=== PATIENT | female | born 1935 | race Two or more races ===

== ENCOUNTER 2016-11-12 16:56 | Inpatient (IN) | payer MEDICARE, MEDICAID ==
[~2016-11-12] VITALS: Ht 167.6 cm; Wt 110.7 kg
[2016-11-12] MEDS ORDERED: FEE PK DOSING 1 MIN EA MC ONE (16:58)
--- NOTE | 2016-11-12 17:00 | NUR ---
Pt bibra 39 from home c/o sob and a sharp pain to right lower breast when coughing, spo2=89% on RA. Placed on monitor. Awaiting md order
--- NOTE | 2016-11-12 17:15 | NUR ---
ALUM PLANT OPERATOR AT BEDSIDE
[2016-11-12 17:26] LABS: EOSINOPHILS # (AUTO) 0.1 /CMM (0.0-0.7); HEMOGLOBIN 15.9 g/dL (11.5-14.8)
--- NOTE | 2016-11-12 17:26 | NUR ---
EKG IN PROGRESS
--- NOTE | 2016-11-12 17:27 | NUR ---
RT AT BEDSIDE ABG
[2016-11-12 17:32] LABS: ABG BASE EXCESS 3.5 mmol/L; ABG OXYGEN SATURATION 88.3 % (92.0-98.5); ABG PCO2 38.6 mmHg (35.0-45.0); ABG PH 7.467 (7.350-7.450); ABG PO2 51.7 mmHg (75.0-100.0); AaDO2 102.4 mmHg; COHb 1.7 % (0.5-1.5); MetHb 0.5 % (0.0-1.5); O2Hb 86.4 % (94.0-97.0); SITE, ABG Left Radial; VENT MODE, BG 2L NC
[2016-11-12 17:33] LABS: INR 1.27 (0.87-1.13); PROTHROMBIN TIME 13.4 SECS (9.5-12.7)
[2016-11-12 17:34] LABS: BASOPHILS # (AUTO) 0.5 /CMM (0.0-0.2); BASOPHILS % (AUTO) 2.4 % (0.0-2.0); EOSINOPHILS % (AUTO) 0.5 % (0.0-6.0); HEMATOCRIT 49 % (33-45); LYMPHOCYTES % (AUTO) 5.2 % (20.0-44.0); MEAN CORPUSCULAR HEMOGLOBIN 31 PG (26.0-33.0); MEAN CORPUSCULAR HGB CONC 33 g/dl (31.0-36.0); MEAN CORPUSCULAR VOLUME 94 fL (82-100); MONOCYTES # (AUTO) 1.1 /CMM (0.1-1.30); MONOCYTES % (AUTO) 5.6 % (2.0-12.0); NEUTROPHILS # (AUTO) 17.4 /CMM (1.8-8.9); NEUTROPHILS % (AUTO) 86.3 % (43.0-81.0); PLATELET COUNT (AUTO) 335 /CMM (150-450); RDW COEFFICIENT OF VARIATION 13.7 (11.5-15.0); RED BLOOD CELL COUNT(AUTO) 5.17 MIL/uL (4.0-5.2); WHITE BLOOD COUNT (AUTO) 20.1 K/uL (4.3-11.0)
[2016-11-12 17:39] LABS: TROPONIN I 0.071 ng/mL (0.00-0.056)
[2016-11-12 17:52] LABS: APPEARANCE,URINE Slightly Cloudy (CLEAR); BILIRUBIN,URINE SMALL (NEGATIVE); BLOOD, URINE Trace-intact Ery/uL (NEGATIVE); COLOR,URINE Orange (YELLOW); KETONES,URINE Trace (NEGATIVE); LEUKOCYTE ESTERASE ,URINE Negative (NEGATIVE); NITRITE, URINE Negative (NEGATIVE); PROTEIN,URINE 100 mg/dl (NEGATIVE); UGLUCOSE Negative (NEGATIVE); UROBILINOGEN,URINE >=8.0 EU/dL (0.2)
[2016-11-12] MEDS ORDERED: CEFEPIME 1 GM in IV D5W 50 ML IV ONE (18:00)
[2016-11-12] MEDS ORDERED: VANCOMYCIN 1 GM in IV D5W 250 ML IV ONE (18:00)
[2016-11-12 18:05] LABS: ALANINE AMINOTRANSFERASE 34 U/L (12-78); ALBUMIN 2.8 g/dL (3.4-5.0); ALKALINE PHOSPHATASE 144 U/L (46-116); ASPARTATE AMINOTRANSFERASE 38 U/L (15-37); BILIRUBIN,DIRECT 0.5 mg/dL (0.0-0.2); BILIRUBIN,TOTAL 1.3 mg/dL (0.2-1.0); CALCIUM, SERUM 8.8 mg/dL (8.5-10.1); CREATININE 0.9 mg/dL (0.6-1.3); GLUCOSE 155 mg/dL (74-106); TOTAL PROTEIN, SERUM 7.7 g/dL (6.4-8.2); UREA NITROGEN, BLOOD 14 mg/dL (7-18)
[2016-11-12 18:06] LABS: BAND % (MANUAL) 1 % (0.0-5.0); EOSINOPHILS % (MANUAL) 1 % (0-4); LYMPHOCYTES % (MANUAL) 10 % (16-48); MONOCYTES % (MANUAL) 7 % (0-11.0); NEUTROPHILS % (MANUAL) 81 (42-76)
--- NOTE | 2016-11-12 18:07 | NUR ---
CALLED PHARMACY FOR MEDS
[2016-11-12 18:10] LABS: CARBON DIOXIDE 29 mmol/L (21-32); CHLORIDE 101 mmol/L (98-107); POTASSIUM 3.6 mmol/L (3.5-5.1); SODIUM SERUM 138 mmol/L (136-145)
[2016-11-12] MEDS ORDERED: DOXY25TA36 PO (18:10)
[2016-11-12] MEDS ORDERED: CETI-102 PO (18:10)
[2016-11-12] MEDS ORDERED: OMEP20TA68 PO (18:10)
[2016-11-12] MEDS ORDERED: ATEN25TA PO (18:10)
[2016-11-12] MEDS ORDERED: PRAV40TA3 PO (18:10)
[2016-11-12] MEDS ORDERED: FLUO-120 PO (18:10)
[2016-11-12] MEDS ORDERED: MEMA10TA PO (18:10)
[2016-11-12] MEDS ORDERED: METO25TA6 PO (18:10)
[2016-11-12] MEDS ORDERED: TOLT4CAP PO (18:10)
[2016-11-12] MEDS ORDERED: DONE10TA44 PO (18:10)
[2016-11-12] MEDS ORDERED: IV SET PRIMARY 1 EA INFUS.SET MC ONE ×2 (18:11→19:02)
[2016-11-12] MEDS ORDERED: DICL2.5D LEFTEYE (18:17)
[2016-11-12] MEDS ORDERED: TOBR5DRO2 LEFTEYE (18:17)
[2016-11-12] MEDS ORDERED: IV SET PRIMARY PUMP SET 1 EA INFUS.SET MC ONE (18:22)
[2016-11-12] MEDS ORDERED: IPRATROPIUM NEB FS 0.5 MG/2.5 ML AMPUL.NEB NEB PRN (18:30)
[2016-11-12] MEDS ORDERED: MAG HYDROX/AL HYDROX/SIMETH 30 ML UDC PO PRN (18:30)
[2016-11-12] MEDS ORDERED: ACETAMINOPHEN 325 MG TABLET PO PRN (18:30)
[2016-11-12] MEDS ORDERED: Z GUARD REMEDY 2 OZ OINT TP PRN (18:30)
[2016-11-12] MEDS ORDERED: ZOLPIDEM TARTRATE 5 MG TABLET PO PRN (18:30)
[2016-11-12] MEDS ORDERED: ASPIRIN 325 MG TABLET PO ONE (18:30)
[2016-11-12] MEDS ORDERED: MAGNESIUM HYDROXIDE 30 ML UDC PO PRN (18:30)
[2016-11-12] MEDS ORDERED: VANCOMYCIN 1 GM in IV D5W 250 ML IV SCH (18:30)
[2016-11-12] MEDS ORDERED: ONDANSETRON HCL/PF 4 MG/2 ML VIAL IVP PRN (18:30)
[2016-11-12 18:35] LABS: BACTERIA,URINE None seen /HPF (None Seen); SQUAMOUS EPITHELIAL CELL,UR Few /HPF (None Seen); URINE AMORPHOUS URATE Moderate /HPF (None Seen); WBC,URINE 0-2 /HPF (0-3)
[2016-11-12 18:36] LABS: MUCUS,URINE Moderate /LPF (None Seen)
[2016-11-12] MEDS ORDERED: IV NS 0.9% 1,000 ML BAG IV ONE (19:00)
[2016-11-12] MEDS ORDERED: IV NS 0.9% 500 ML IV ONE (19:02)
[2016-11-12] MEDS ORDERED: IV NS 0.9% 3,000 ML ONE (19:02)
--- NOTE | 2016-11-12 19:39 | NUR ---
PT LEFT FOR TELE FLOOR VIA [facility] WITH CATHLEEN SALCIDO. REPORT TO BE GIVEN AT BEDSIDE.
[2016-11-12 19:49] VITALS: BP 140/62
--- NOTE | 2016-11-12 19:49 | NUR ---
COMMERCIAL LOAN ANALYST OPENING NOTES: RECEIVED PT FROM ED WITH 2 FAMILY MEMBERS AT BEDSIDE. PT IS A/O X1-2. PT WAS ON NC 4LPM VIA NC AND IS BEING INFUSED WITH BOLUS OF 2L NS BAG. PT HAS IV ON R HAND #20G. WAS ENDORSED TO CONTINUE 1L AND 500ML BAG TOTALING TO 3.5L OF BAG OF NS. WILL CONTINUE TO MONITOR PT.
[2016-11-12] MEDS: ENOXAPARIN SODIUM 40 MG/0.4 ML DISP.SYRIN SQ SCH (20:51)
[2016-11-12] MEDS ORDERED: PIPERACILLIN /TAZOBACTAM 4.5 G in IV D5W 50 ML IV SCH (21:00)
[2016-11-12] MEDS: DONEPEZIL 5 MG TABLET PO SCH (21:54)
[2016-11-12] MEDS: ATORVASTATIN 10 MG TABLET PO SCH (21:54)
[2016-11-12] MEDS ORDERED: PRAVASTATIN SODIUM 20 MG TABLET PO SCH (22:00)
[2016-11-12 23:00] VITALS: BP 127/59
--- NOTE | 2016-11-12 23:00 | NUR ---
IRONER SOCK NOTES: WAS NOTIFIED FROM TECH THAT PT IS HAVING A FIB FROM 170S-200s. PAGED DR. BEYER OF SITUATION AND WAS ORDERED EKG STAT.
[2016-11-12] MEDS ORDERED: METOPROLOL TARTRATE INJ 5 MG/5 ML AMPUL ONE (23:05)
--- NOTE | 2016-11-12 23:10 | NUR ---
PLUG MAKING OPERATOR NOTES: GOT RESULTS OF EKG : A -FIB WITH RAPID V RATE [address] DR[address] BEYER AT BEDSIDE AND GAVE ORDER OF LOPRESSOR 5MG IV X 1. BP WAS 127/59 HR 136 . CHARGE NURSE AND MOLD CHANGER AWARE.
[2016-11-12 23:15] VITALS: BP 108/50
[2016-11-12] MEDS ORDERED: METOPROLOL TARTRATE INJ 5 MG/5 ML AMPUL IVP ONE (23:30)
--- NOTE | 2016-11-12 23:30 | NUR ---
ASSEMBLER SMALL PRODUCTS NOTES: CHARGE NURSE AWARE AND TRANSFER TO JASSI PER DR. BEYER WAS GIVEN. WILL CALL JASSI FOR REPORT.
[2016-11-12 23:40] VITALS: BP 106/67
[2016-11-13] VITALS (7 sets, daily range): BP systolic 105–144; BP diastolic 63–87
--- NOTE | 2016-11-13 | NUR ---
RESOURCING CONSULTANT NOTES: TRANSFER WITH ANOTHER RN ACCOMPANIED TO JASSI. GAVE REPORT AT BEDSIDE.
[2016-11-13] MEDS ORDERED: SECONDARY IV SET 1 EA INFUS.SET MC ONE ×3 (00:03→17:03)
[2016-11-13] MEDS ORDERED: IV SET PRIMARY PUMP SET 1 EA INFUS.SET MC ONE ×2 (00:03→00:35)
[2016-11-13] MEDS ORDERED: ASPIRIN 325 MG TABLET ONE (00:06)
--- NOTE | 2016-11-13 00:10 | NUR ---
TELE-TD/MIXER MACHINE FEEDER RECEIVED PT ACCOMPANIED BY 3W STAFF. PT IS A/Ox4 AND HAS NO COMPLAINTS OF ACUTE STRESS OR SOB, BUT COMPLAINT OF 7/10 BACK PAIN. PT CHANGED INTO HOSPITAL GOWN AND CLEANED. ORIENTED TO ROOM AND CALL LIGHT USE. PT BP IS STABLE AND AFEBRILE, BUT PT SHOWING RAPID AFIB WITH RVR HR RATE 150, WITH PERIODS OF SVT HR 160-190 AND PERIODS OF VTACH LASTING 4 SECONDS PER STRAP BUCKLER MACHINE. I SPOKE WITH DR. BEYER AND NEW ORDERS FOR AMIODARONE DRIP PER PROTOCOL. PT IS ASYMPTOMATIC. WILL CONTINUE TO MONITOR CLOSELY.
[2016-11-13] MEDS: IV NS 0.9% 1,000 ML IV PRN ×2 (00:12→18:40)
[2016-11-13] MEDS: PIPERACILLIN /TAZOBACTAM 3.375 G in IV D5W 50 ML IV SCH ×5 (00:12→17:00)
[2016-11-13] MEDS: HYDROCODONE/APAP 5/325MG 1 EACH TABLET PO PRN ×3 (00:14→17:44)
[2016-11-13] MEDS ORDERED: AMIODARONE 150 MG/3 ML VIAL IV ONE ×2 (00:34→00:37)
[2016-11-13] MEDS ORDERED: IV D5W 100 ML IV ONE ×2 (00:36→00:37)
[2016-11-13] MEDS ORDERED: IV D5W 500 ML IV ONE (00:39)
--- NOTE | 2016-11-13 00:48 | NUR ---
MED NOTE: ALL ONCE STK MEDS REMOVED FROM PT EMAR. FOR PT SAFETY.
[2016-11-13] MEDS ORDERED: AMIODARONE 150 MG in IV D5W 100 ML IV ONE (01:00)
[2016-11-13] MEDS ORDERED: AMIODARONE 900 MG in IV D5W 482 ML IV PRN (01:00)
--- NOTE | 2016-11-13 01:03 | NUR ---
TELE-TD DRAFTER MARINE PT CONVERTED TO NSR ON TELE. AMIODARONE DRIP RUNNING PER PROTOCOL. WILL CONTINUE TO MONITOR.
[2016-11-13] MEDS ORDERED: ALBUTEROL FS 2.5 MG/3 ML VIAL.NEB ONE (04:54)
[2016-11-13 06:48] LABS: EOSINOPHILS # (AUTO) 0.1 /CMM (0.0-0.7); EOSINOPHILS % (AUTO) 0.7 % (0.0-6.0); HEMATOCRIT 38 % (33-45); HEMOGLOBIN 12.8 g/dL (11.5-14.8); LYMPHOCYTES # (AUTO) 1.2 /CMM (0.8-4.8); MEAN CORPUSCULAR HEMOGLOBIN 33 PG (26.0-33.0); MEAN CORPUSCULAR HGB CONC 34 g/dl (31.0-36.0); MEAN CORPUSCULAR VOLUME 95 fL (82-100); MONOCYTES # (AUTO) 0.4 /CMM (0.1-1.30); MONOCYTES % (AUTO) 2.3 % (2.0-12.0); NEUTROPHILS # (AUTO) 17.7 /CMM (1.8-8.9); PLATELET COUNT (AUTO) 234 /CMM (150-450); RDW COEFFICIENT OF VARIATION 14.3 (11.5-15.0); RED BLOOD CELL COUNT(AUTO) 3.93 MIL/uL (4.0-5.2); WHITE BLOOD COUNT (AUTO) 19.4 K/uL (4.3-11.0)
[2016-11-13 07:02] LABS: B-TYPE NATRIURETIC PEPTIDE 1153 PG/ML (0-125); CALCIUM, SERUM 7.6 mg/dL (8.5-10.1); CARBON DIOXIDE 27 mmol/L (21-32); CHLORIDE 106 mmol/L (98-107); CREATININE 0.8 mg/dL (0.6-1.3); GLUCOSE 132 mg/dL (74-106); MAGNESIUM 1.7 mg/dL (1.8-2.4); PHOSPHORUS 2.9 mg/dL (2.5-4.9); POTASSIUM 3.6 mmol/L (3.5-5.1); SODIUM SERUM 142 mmol/L (136-145); UREA NITROGEN, BLOOD 10 mg/dL (7-18)
[2016-11-13 07:06] LABS: CHOLESTEROL 59 mg/dL (<200); HDL CHOLESTEROL 18 mg/dL (40-60); LDL 28 mg/dL (0-99); THYROID STIMULATING HORMONE 1.015 uIU/mL (0.358-3.74); TRIGLYCERIDES 66 mg/dL (30-150)
--- NOTE | 2016-11-13 07:45 | NUR ---
JASSI/RN - Notes Received pt in bed alert and oriented x3. No s/s of respiratory distress. Denies pain or discomfort at this time. On Tele reading SR/Afib 70's. Amiodorone drip infusing at this time. IVF infusing well. Barrera catheter intact draining urine to gravity. Safety and comfort measures in place. Will continue to monitor pt closely.
[2016-11-13] MEDS: MEMANTINE HCL 5 MG TABLET PO SCH ×2 (08:57→16:11)
[2016-11-13] MEDS: PANTOPRAZOLE 40 MG TABLET.DR PO SCH (08:57)
[2016-11-13] MEDS: FLUOXETINE HCL 20 MG CAPSULE PO SCH (08:57)
--- NOTE | 2016-11-13 09:45 | NUR ---
JASSI/RN - Notes Patient up with physical therapy at this time.
--- NOTE | 2016-11-13 10:00 | NUR ---
JASSI/RN - Notes Pt complains of abdominal pain on pain scale 8 out of 10. Administered [place] 5/325 1 tab as ordered for PRN pain. Comfort measures rendered. Will reassess pain accordingly.
[2016-11-13] MEDS ORDERED: Magnesium 1GM/D5W 100ML PREMIX 100 ML IV SCH (12:41)
[2016-11-13] MEDS ORDERED: POTASSIUM CHLORIDE 20 MEQ TAB.PRT.SR PO SCH (13:00)
[2016-11-13] MEDS: Magnesium 1GM/D5W 100ML PREMIX 100 ML IV SCH ×2 (13:21→14:22)
[2016-11-13] MEDS: GUAIFENESIN 300 MG/15 ML UDC PO PRN (15:42)
[2016-11-13] MEDS: AMIODARONE HCL 200 MG TABLET PO SCH (16:02)
[2016-11-13] MEDS: LACTOBACILLUS RHAMNOSUS GG 1 EACH CAP.SPRINK PO SCH (16:11)
--- NOTE | 2016-11-13 17:00 | NUR ---
JASSI/RN - Notes Amiodorone PO not given at this time, pt still on Amiodorone drip at this time.
[2016-11-13] MEDS: VANCOMYCIN 1.25 GM in IV D5W 500 ML IV SCH (17:34)
--- NOTE | 2016-11-13 17:44 | NUR ---
JASSI/RN - Notes Pt complains of abdominal pain on pain scale 7 out of 10. Administered [place] 5/325 1 tab as ordered for PRN pain. Comfort measures rendered. Will reassess pain accordingly.
[2016-11-13] MEDS ORDERED: ALBUTEROL FS 2.5 MG/3 ML VIAL.NEB NEB PRN (19:34)
--- NOTE | 2016-11-13 19:59 | NUR ---
CLIP BOLTER AND WRAPPER. INITIAL ASSESSMENT. RECEIVED THE PT REST ON THE BED. PT AWAKE, ALERT, FOLLOW COMMANDS. ESCALATOR MECHANIC SHOWING AFIB. OXYGEN 3L VIA NASAL CANNULA. SAT 98%. FC PATENT. URINE DRAINING. IV RT WRIST 20G. IVF NS 75 ML/H,AMIO 0.5MG/ HOB ELEVATED. TURN AND REPOSITION Q2H. WILL CONT INUE TO MONITOR VITALS.
--- NOTE | 2016-11-13 20:00 | NUR ---
CHANGE OF ASSIGNMENT NOTE; PT ON THE BED RESTING WITHOUT ANY DISTRESS, BREATHING UNLABORED ON 3 LPM VIA NC. TELE MONITOR SHOWING SR/A-FIB CONTROLLED HR. .RW 20G PERIPHERAL IV INTACT AND PATENT WITH CONTINUE NS AND AMIODARONE DRIP .F/C INTACT AND DRAINING CLEAR YELLOW URINE . DENIED ANY PAIN AT THIS TIME , WILL CONTINUE TO MONITOR .
[2016-11-13] MEDS: ATORVASTATIN 10 MG TABLET PO SCH (21:26)
[2016-11-13] MEDS: DONEPEZIL 5 MG TABLET PO SCH (21:26)
[2016-11-13] MEDS: ENOXAPARIN SODIUM 40 MG/0.4 ML DISP.SYRIN SQ SCH (21:27)
[2016-11-14] VITALS (7 sets, daily range): BP systolic 121–159; BP diastolic 73–85
[2016-11-14] MEDS: PIPERACILLIN /TAZOBACTAM 3.375 G in IV D5W 50 ML IV SCH ×5 (00:13→23:34)
[2016-11-14 07:05] LABS: BASOPHILS % (AUTO) 0.2 % (0.0-2.0); EOSINOPHILS # (AUTO) 0.3 /CMM (0.0-0.7); EOSINOPHILS % (AUTO) 2.1 % (0.0-6.0); HEMATOCRIT 36 % (33-45); HEMOGLOBIN 12.2 g/dL (11.5-14.8); LYMPHOCYTES % (AUTO) 8.5 % (20.0-44.0); MEAN CORPUSCULAR HEMOGLOBIN 33 PG (26.0-33.0); MEAN CORPUSCULAR HGB CONC 34 g/dl (31.0-36.0); MEAN CORPUSCULAR VOLUME 96 fL (82-100); MONOCYTES # (AUTO) 0.6 /CMM (0.1-1.30); MONOCYTES % (AUTO) 4.6 % (2.0-12.0); NEUTROPHILS # (AUTO) 10.2 /CMM (1.8-8.9); NEUTROPHILS % (AUTO) 84.6 % (43.0-81.0); PLATELET COUNT (AUTO) 245 /CMM (150-450); RDW COEFFICIENT OF VARIATION 14.2 (11.5-15.0); RED BLOOD CELL COUNT(AUTO) 3.74 MIL/uL (4.0-5.2); WHITE BLOOD COUNT (AUTO) 12.1 K/uL (4.3-11.0)
--- NOTE | 2016-11-14 07:15 | NUR ---
RN NOTES RECEIVED PATIENT AOX4 , NOT IN ACUTE DISTRESS , DENIES SOB AND DISCOMFORT AT TIME , SPO2 OF 98% VIA 3LPM NC , AFIB 83 ON TELE MONITOR , FC DRAINING VIA GRAVITY WITH OG COLORED URINE , IV OF R HAND # 22 PATENT AND INTACT WITH NS @ 75ML/HR INFUSING WELL , ALL NEEDS ATTENDED , BED ON LOW AND LOCKED POSITION , SIDE RAILS X2 ,CALL LIGHT WITHIN REACH , HOB @ 35 WILL CONTINUE TO MONITOR
[2016-11-14 07:23] LABS: TROPONIN I < 0.017 ng/mL (0.00-0.056)
[2016-11-14 07:29] LABS: ALANINE AMINOTRANSFERASE 19 U/L (12-78); ALBUMIN 1.8 g/dL (3.4-5.0); ALKALINE PHOSPHATASE 96 U/L (46-116); ASPARTATE AMINOTRANSFERASE 14 U/L (15-37); BILIRUBIN,TOTAL 0.6 mg/dL (0.2-1.0); CARBON DIOXIDE 27 mmol/L (21-32); CHLORIDE 105 mmol/L (98-107); CREATININE 0.6 mg/dL (0.6-1.3); GLUCOSE 95 mg/dL (74-106); MAGNESIUM 1.8 mg/dL (1.8-2.4); PHOSPHORUS 2.3 mg/dL (2.5-4.9); POTASSIUM 3.3 mmol/L (3.5-5.1); SODIUM SERUM 142 mmol/L (136-145); TOTAL PROTEIN, SERUM 5.6 g/dL (6.4-8.2); UREA NITROGEN, BLOOD 6 mg/dL (7-18)
--- NOTE | 2016-11-14 07:29 | NUR ---
RN EOS NOTE; PT REMAINED STABLE DURING THE SHIFT. A-FIB WITH CONTROLLED HR 86 ON TELE MONITOR AT THIS TIME .S/P AMIODARONE DRIP. ALL NEEDS ATTENDED PROMPTLY. CALL LIGHT WITHIN REACH. ENDORSED TO NEXT SHIFT RN FOR CONTINUITY OF CARE.
[2016-11-14] MEDS: GUAIFENESIN 300 MG/15 ML UDC PO PRN ×2 (08:44→17:10)
[2016-11-14] MEDS: HYDROCODONE/APAP 5/325MG 1 EACH TABLET PO PRN ×2 (08:45→21:54)
[2016-11-14] MEDS: AMIODARONE HCL 200 MG TABLET PO SCH ×2 (08:45→17:10)
--- NOTE | 2016-11-14 08:45 | NUR ---
RN NOTES PT COMPLAINING OF BACK PAIN 01/16 NORCO 5-325MG GIVEN , WILL RE ASSESS PAIN , \ COMPLAINING ALSO OF PRODUCTIVE COUGH , ROBITUSSIN PRN ORDERED GIVEN
[2016-11-14] MEDS: MEMANTINE HCL 5 MG TABLET PO SCH ×2 (08:46→17:10)
[2016-11-14] MEDS: FLUOXETINE HCL 20 MG CAPSULE PO SCH (08:46)
[2016-11-14] MEDS: LACTOBACILLUS RHAMNOSUS GG 1 EACH CAP.SPRINK PO SCH ×2 (08:46→17:10)
[2016-11-14] MEDS: PANTOPRAZOLE 40 MG TABLET.DR PO SCH (08:46)
--- NOTE | 2016-11-14 09:00 | NUR ---
RN NOTES PT STABLE POST PT , ON 4LPM NC SPO2 OF 98% , NOT IN DISTRESS , DENIES DISCOMFORT , TOLERATED WELL , WILL CONTINUE TO MONITOR
[2016-11-14] MEDS ORDERED: POTASSIUM PHOSPHATE MM 15 MMOL in IV D5W 250 ML IV SCH (11:00)
[2016-11-14] MEDS: POTASSIUM PHOSPHATE MM 7.5 MMOL in IV D5W 100 ML IV SCH ×2 (12:40→15:34)
[2016-11-14] MEDS ORDERED: POTASSIUM CHLORIDE 20 MEQ POWDER PACKET GT ONE (13:30)
--- NOTE | 2016-11-14 15:03 | NUR ---
RN NOTES SPOKE WITH DIETITIAN , RECOMMENDING BOOST BID PT HAS POOR APPETITE , ORDER CARRIED OUT
[2016-11-14] MEDS ORDERED: IV NS 0.9% 250 ML IV ONE (16:47)
[2016-11-14] MEDS ORDERED: IV SET PRIMARY PUMP SET 1 EA INFUS.SET MC ONE (16:51)
[2016-11-14] MEDS: BOOST PLUS FOOD-CHOCLATE 237 ML BOX PO SCH (17:10)
[2016-11-14] MEDS ORDERED: [UNRECOGNIZED DRUG - OTHER] XX PRN (18:00)
[2016-11-14] MEDS: VANCOMYCIN 1.25 GM in IV D5W 500 ML IV SCH (18:10)
[2016-11-14] MEDS ORDERED: FIXODENT 1 EA TUBE MM PRN (18:30)
--- NOTE | 2016-11-14 20:25 | NUR ---
received pt from day shift, alert, follows commands, Afib controlled, on 4L 02 sat well, lungs partially congested, some non pitting edema, tolerates diet, f/c good output, v/s stable, no pain, pt turned and repositioned q2hrs.
[2016-11-14] MEDS: ATORVASTATIN 10 MG TABLET PO SCH (21:17)
[2016-11-14] MEDS: DONEPEZIL 5 MG TABLET PO SCH (21:17)
[2016-11-14] MEDS: ENOXAPARIN SODIUM 40 MG/0.4 ML DISP.SYRIN SQ SCH (21:26)
[2016-11-15] VITALS: BP 128/71
[2016-11-15] MEDS: HYDROCODONE/APAP 5/325MG 1 EACH TABLET PO PRN ×2 (02:56→12:38)
[2016-11-15 04:00] VITALS: BP 117/71
[2016-11-15 04:24] VITALS: BP 117/71
--- NOTE | 2016-11-15 04:27 | NUR ---
pt is resting in the bed, no acute distress overnight, on 4L 02 sat well, v/s stable, no pain, pt cleaned, changed and repositioned q2hrs.
[2016-11-15] MEDS: PIPERACILLIN /TAZOBACTAM 3.375 G in IV D5W 50 ML IV SCH ×3 (05:04→18:11)
[2016-11-15 07:44] LABS: BASOPHILS % (AUTO) 0.3 % (0.0-2.0); EOSINOPHILS # (AUTO) 0.2 /CMM (0.0-0.7); EOSINOPHILS % (AUTO) 2.7 % (0.0-6.0); HEMATOCRIT 38 % (33-45); HEMOGLOBIN 12.7 g/dL (11.5-14.8); LYMPHOCYTES # (AUTO) 1.1 /CMM (0.8-4.8); LYMPHOCYTES % (AUTO) 13.2 % (20.0-44.0); MEAN CORPUSCULAR HEMOGLOBIN 32 PG (26.0-33.0); MEAN CORPUSCULAR HGB CONC 34 g/dl (31.0-36.0); MEAN CORPUSCULAR VOLUME 94 fL (82-100); MONOCYTES # (AUTO) 0.4 /CMM (0.1-1.30); MONOCYTES % (AUTO) 5.1 % (2.0-12.0); NEUTROPHILS # (AUTO) 6.8 /CMM (1.8-8.9); NEUTROPHILS % (AUTO) 78.7 % (43.0-81.0); PLATELET COUNT (AUTO) 273 /CMM (150-450); RDW COEFFICIENT OF VARIATION 14.3 (11.5-15.0); RED BLOOD CELL COUNT(AUTO) 3.99 MIL/uL (4.0-5.2); WHITE BLOOD COUNT (AUTO) 8.7 K/uL (4.3-11.0)
[2016-11-15 07:48] LABS: ALANINE AMINOTRANSFERASE 26 U/L (12-78); ALBUMIN 1.9 g/dL (3.4-5.0); ALKALINE PHOSPHATASE 101 U/L (46-116); ASPARTATE AMINOTRANSFERASE 31 U/L (15-37); BILIRUBIN,TOTAL 0.6 mg/dL (0.2-1.0); CALCIUM, SERUM 8.2 mg/dL (8.5-10.1); CARBON DIOXIDE 32 mmol/L (21-32); CHLORIDE 104 mmol/L (98-107); CREATININE 0.6 mg/dL (0.6-1.3); GLUCOSE 108 mg/dL (74-106); MAGNESIUM 1.8 mg/dL (1.8-2.4); PHOSPHORUS 3.2 mg/dL (2.5-4.9); POTASSIUM 3.4 mmol/L (3.5-5.1); SODIUM SERUM 142 mmol/L (136-145); TOTAL PROTEIN, SERUM 6.1 g/dL (6.4-8.2); UREA NITROGEN, BLOOD 5 mg/dL (7-18)
[2016-11-15 08:00] VITALS: BP 143/82
[2016-11-15] MEDS: AMIODARONE HCL 200 MG TABLET PO SCH ×2 (08:06→16:16)
[2016-11-15] MEDS: MEMANTINE HCL 5 MG TABLET PO SCH ×2 (08:06→16:16)
[2016-11-15] MEDS: PANTOPRAZOLE 40 MG TABLET.DR PO SCH (08:06)
[2016-11-15] MEDS: FLUOXETINE HCL 20 MG CAPSULE PO SCH (08:06)
[2016-11-15] MEDS: LACTOBACILLUS RHAMNOSUS GG 1 EACH CAP.SPRINK PO SCH ×2 (08:06→16:16)
[2016-11-15] MEDS: BOOST PLUS FOOD-CHOCLATE 237 ML BOX PO SCH ×2 (08:12→16:15)
[2016-11-15] MEDS ORDERED: POTASSIUM CHLORIDE 20 MEQ TAB.PRT.SR PO SCH (11:00)
[2016-11-15] MEDS: TOBRAMYCIN/DEXAMETH OPHTH DORPS 2.5 ML BOTTLE LEFTEYE SCH ×2 (11:30→16:15)
[2016-11-15] MEDS ORDERED: LEVO750T21 PO (11:35)
[2016-11-15] MEDS ORDERED: AMIO200T7 PO (11:35)
[2016-11-15 16:00] VITALS: BP 104/53
[2016-11-15 16:16] VITALS: BP 104/53
--- NOTE | 2016-11-15 18:00 | NUR ---
JASSI RN Patient discharge to [facility] per Dr. Miller. Family (Jennifer and patient in agreement with discharge plan). Discussed discharge instruction to patient and will take oral antibiotics in the facility. Called Facility and gave report to Jaxon CONNOLLY. Vitals signs stable. Belongings checked with patient.
== END 2016-11-15 20:18 | DRG 871 ==
LOC: EDSEX 16:57 → ER 16:57 → TELE 19:25 → TELE-TD 11-13 00:01 → TELE1 11-14 20:03 → MEDSG1 11-15 09:08
DX: A41.9 Sepsis, unspecified organism (principal); I21.4 Non-ST elevation (NSTEMI) myocardial infarction; J18.9 Pneumonia, unspecified organism; J96.90 Respiratory failure, unspecified, unspecified whether with hypoxia or hypercapnia; I47.1 Supraventricular tachycardia; I48.92 Unspecified atrial flutter; G30.9 Alzheimer's disease, unspecified; F02.80 Dementia in other diseases classified elsewhere, unspecified severity, without behavioral disturbance, psychotic disturbance, mood disturbance, and anxiety; E78.5 Hyperlipidemia, unspecified; E66.9 Obesity, unspecified; E83.42 Hypomagnesemia; I10 Essential (primary) hypertension; E55.9 Vitamin D deficiency, unspecified; E83.39 Other disorders of phosphorus metabolism; Z68.39 Body mass index [BMI] 39.0-39.9, adult; R65.20 Severe sepsis without septic shock
CPT/HCPCS: 36415; 36600; 71010-TC; 80048-TC; 80053-TC; 80061-TC; 80076-TC; 80202-TC; 81000-TC; 82306; 83605-TC; 83735-TC; 83880; 84100-TC; 84439-TC; 84443-TC; 84484-TC; 85025-TC; 85730-TC; 87040-TC; 87081-TC; 87086-TC; 87186-TC; 93307-TC; 94799-TC; 97001-TC; 97110-TC; 97116-TC; 97530-TC; A4606; J0282; J0692; J1650; J2543; J3370; J3475; J3490; J7030; J7040; J7050; J7060; Z7610